=== PATIENT | female | born 1985 | race African-American/Black ===

== ENCOUNTER 2019-10-01 08:18 | Emergency (ER) | payer OTHER ==
[2019-10-01 08:41] LABS: ABSOLUTE EOSINOPHILS # (AUTO) 0.1 10^3/uL (0.0-0.6); ABSOLUTE MONOCYTES (AUTO) 0.5 10^3/uL (0.1-1.4); ABSOLUTE NEUT (AUTO) 3.9 10^3/uL (1.7-8.2); BASOPHILS % (AUTO) 0.6 % (0-2); EOSINOPHILS % (AUTO) 1.5 % (0-6); HEMATOCRIT 38.8 % (36.0-47.0); LYMPHOCYTES % (AUTO) 30.8 % (13-45); MEAN CORPUSCULAR HEMOGLOBIN 29.8 pg (27.0-33.4); MEAN CORPUSCULAR HGB CONC 33.6 g/dL (32.0-36.0); MEAN CORPUSCULAR VOLUME 89 fl (80-97); PLATELET COUNT 233 10^3/uL (150-450); RED BLOOD COUNT 4.37 10^6/uL (3.72-5.28); RED CELL DISTRIBUTION WIDTH 15.3 % (11.5-14.0); SEGMENTED NEUTROPHILS % (AUTO) 59.1 % (42-78); TOTAL CELLS COUNTED % (AUTO) 100 %; WHITE BLOOD COUNT 6.5 10^3/uL (4.0-10.5)
--- NOTE | 2019-10-01 09:09 | ER Document Report ---
ED General - General Chief Complaint: Probable Seizure Stated Complaint: POSSIBLE SEIZURE/HEAD INJURY Time Seen by Provider: 10/01/19 08:44 Primary Care Provider: LAURI BLAIR MD [ACTIVE STAFF] - Follow up as needed - HPI Notes: Ms. Cameron is a 34-year-old previously healthy female 2 para 2 presenting with a chief complaint of possible seizure new onset. Patient said that she felt well when she got up this morning and drove her to children to school. She had just left the school building after dropping off a second child when she apparently had a generalized seizure witnessed by bystanders. Duration is undetermined. EMS was called she was initially unresponsive and noted to have abrasions of the tongue and urinary incontinence. She was transported here and was fully oriented by the time of arrival. Fingerstick glucose at the scene per EMS was 256. Patient is on oral contraceptives and takes no other regular medication. History of penicillin allergy. Denies any known history of head injury or seizures. Denies abuse of drugs alcohol or tobacco. - Related Data Allergies/Adverse Reactions: Penicillins Allergy (Verified 10/01/19 08:25) Past Medical History - General Information source: Patient, Relative - Social History Smoking Status: Never Smoker Frequency of alcohol use: None Drug Abuse: None Occupation: Homemaker Lives with: Family Family History: Reviewed & Not Pertinent - Medical History Medical History: Negative Review of Systems - Review of Systems Notes: Constitutional: Negative for fever. HENT: Negative for sore throat. Eyes: Negative for visual changes. Cardiovascular: Negative for chest pain. Respiratory: Negative for shortness of breath. Gastrointestinal: Negative for abdominal pain, vomiting or diarrhea. Genitourinary: Negative for dysuria. Musculoskeletal: Negative for back pain. Skin: Negative for rash. Neurological: As per HPI . 10 point ROS negative except as marked above and in HPI. Physical Exam - Vital signs Vitals: Resp 21 H 10/01/19 08:30 - Notes Notes: GENERAL: Well-developed well-nourished appearing in no acute distress. SKIN: Good turgor no rashes. HEAD: Normocephalic atraumatic. EYES: PERRLA. EOMI. Conjunctivae and sclerae clear. EARS: CANALS AND TMS CLEAR. NOSE: CLEAR. MOUTH: Tongue is obviously abraded. Moist mucosa. Good dentition. No stridor or edema. No drooling. NECK: Supple. No masses or thyromegaly. No adenopathy. Carotids 2+ without bruits. No JVD. BACK: Symmetrical without tenderness. CHEST: Respirations unlabored. Breath sounds clear and symmetrical. HEART: Regular rhythm. No murmur gallop or rub. ABDOMEN: Soft nontender without masses, organomegaly or rebound. Bowel sounds normally active. No bruits. GENITALIA: Deferred. EXTREMITIES: No edema. No calf tenderness. Cap refill less than 1.5 seconds. Dorsalis pedis and posterior tibial pulses 3+ and symmetrical. NEUROLOGICAL: GCS 15. Alert and oriented x3. Normal gait. Fluent speech. Cranial nerves II through XII intact. Sensorimotor and cerebellar normal. Normal tone. PSYCHIATRIC: Appropriate affect. Course - Re-evaluation Re-evalutation: 10/01/19 09:11 It appears clinically the patient had new onset of seizure activity. We will check CBC chemistry profile, EKG urine drug screen and obtain MRI of the brain. 10/01/19 10:55 Urine drug screen was positive for THC and remainder of labs including multi Unique profile and CBC are unremarkable. Patient is asymptomatic at this time. We await report of the MRI scan which has been completed. 10/01/19 13:12 Bony lesions of the frontal skull noted on the MRI of the head. She has no abnormalities of the brain per se. Findings have been discussed with consultants at [facility] including Dr. Contreras from neurosurgery and Dr. Colmenares from neurology. They agree to see this patient as an ED to ED transfer for consultation in their department. This is also been discussed with Dr. Flores the ED attending who accepts the transfer. Findings have been discussed with the patient in detail. - Vital Signs Vital signs: Temp Pulse Resp BP Pulse Ox 97.9 F 25 H 133/84 H 10/01/19 08:41 10/01/19 08:35 10/01/19 08:36 - Laboratory Result Diagrams: 10/01/19 08:28 10/01/19 08:28 Laboratory results interpreted by me: 10/01/19 10/01/19 10/01/19 08:28 08:28 08:38 RDW 15.3 H Chloride 108 H Carbon Dioxide 19 L Glucose 136 H Urine Protein 30 H Urine Ketones TRACE H Urine Ascorbic Acid 20 H - Diagnostic Test Radiology reviewed: Reports reviewed - EKG Interpretation by Me Additional EKG results interpreted by me: 10/01/19 09:12 Twelve-lead EKG reviewed by me contemporaneously at 0843 hrs. showing normal sinus rhythm with a rate of 87, normal axis and normal intervals. Discharge - Discharge Clinical Impression: New onset seizure, Abnormal findings on diagnostic imaging of skull or facial bones Condition: Stable Disposition: [place] Referrals: LAURI BLAIR MD [ACTIVE STAFF] - Follow up as needed
[2019-10-01 09:13] LABS: APPEARANCE,URINE CLEAR; BILIRUBIN,URINE NEGATIVE (NEGATIVE); COLOR,URINE YELLOW; GLUCOSE, URINE NEGATIVE (NEGATIVE); KETONES,URINE TRACE mg/dL (NEGATIVE); LEUKOCYTE ESTERASE,URINE NEGATIVE (NEGATIVE); NITRITE,URINE NEGATIVE (NEGATIVE); PROTEIN,URINE 30 mg/dL (NEGATIVE); URINE SPECIFIC GRAVITY 1.018; UROBILINOGEN,URINE NEGATIVE mg/dL (<2.0)
[2019-10-01 09:16] LABS: ALKALINE PHOSPHATASE 59 U/L (38-126); ANION GAP 13 (5-19); ASPARTATE AMINO TRANSFERASE 22 U/L (14-36); BILIRUBIN,DIRECT 0.3 mg/dL (0.0-0.4); BILIRUBIN,TOTAL 0.5 mg/dL (0.2-1.3); BLOOD UREA NITROGEN 13 mg/dL (7-20); CALCIUM 9.1 mg/dL (8.4-10.2); CARBON DIOXIDE 19 mmol/L (22-30); CHLORIDE 108 mmol/L (98-107); GLUCOSE 136 mg/dL (75-110); POTASSIUM 4.2 mmol/L (3.6-5.0); TOTAL PROTEIN 7.5 g/dL (6.3-8.2)
[2019-10-01 09:17] LABS: ALCOHOL < 10 mg/dL (NONE DETECTED)
[2019-10-01 09:37] LABS: URINE AMPHETAMINES SCREEN NEGATIVE; URINE BARBITURATES SCREEN NEGATIVE; URINE BENZODIAZEPINES SCREEN NEGATIVE; URINE COCAINE SCREEN NEGATIVE; URINE METHADONE SCREEN NEGATIVE; URINE PHENCYCLIDINE SCREEN NEGATIVE
[2019-10-01 09:55] LABS: URINE MARIJUANA (THC) SCREEN UNCONFIRMED POSITIVE
--- NOTE | 2019-10-01 11:33 | RADIOLOGY REPORT (SQ) ---
EXAM DESCRIPTION: MRI HEAD COMBO COMPLETED DATE/TIME: 10/01/2019 10:30 am REASON FOR STUDY: seizure new onset COMPARISON: None. TECHNIQUE: Multiplanar imaging includes noncontrasted T1, T2, FLAIR, diffusion with ADC map and post gadolinium contrast T1 sequences. Images stored on PACS. CONTRAST TYPE AND DOSE: 15 mL Dotarem. RENAL FUNCTION: Not indicated. ACR Type II contrast agent associated with few, if any, unconfounded cases of NSF LIMITATIONS: None. FINDINGS: There is a partially empty sella. The other midline structures, including the corpus call osum and craniocervical junction are normal in appearance. There is no restricted diffusion on the DWI or blooming artifact on the gradient sequence. There is no T2 or FLAIR signal abnormality. The mesial temporal lobes are normal in appearance. The re is no acute intracranial hemorrhage, mass, mass effect or midline shift. There is no effacement o f the cerebral sulci or basal subarachnoid cisterns. The jerez-white matter differentiation is preser stacey. The caliber of the ventricles is concordant with the degree of sulcation. The intracranial vas cular flow voids are preserved. There is no pathologic intracranial enhancement There is no pathologic intracranial enhancement. There are several expansile osteolytic lesions in the left frontal bone that are hypointense on the T 2 weighted sequence and demonstrate mild heterogeneous enhancement on the postcontrast sequences. The orbits and globes are normal. The paranasal sinuses are clear. IMPRESSION: 1. 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 The differential c onsiderations include among other things metastases, fibrous dysplasia and Langerhans histiocytosis. 2. No acute intracranial abnormality. EVIDENCE OF ACUTE STROKE: NO. COMMENT: This report was called to ZOFIA CALIXTO MD at11:27 on 10/01/2019. TECHNICAL DOCUMENTATION: JOB ID: [id number] [employer]- All Rights Reserved Reading location - IP/workstation name: [email or web address]
--- NOTE | 2019-10-01 11:39 | EKG REPORT ---
SEVERITY:- NORMAL ECG - SINUS RHYTHM : Confirmed by: Roseanne Mccabe MD 01-Oct-2019 11:38:24
--- NOTE | 2019-10-01 12:34 | RADIOLOGY REPORT (SQ) ---
EXAM DESCRIPTION: CHEST 2 VIEWS COMPLETED DATE/TIME: 10/01/2019 12:24 pm REASON FOR STUDY: seizure COMPARISON: None. EXAM PARAMETERS: NUMBER OF VIEWS: two views TECHNIQUE: PA and lateral views of the chest were obtained. RADIATION DOSE: NA LIMITATIONS: none FINDINGS: LUNGS AND PLEURA: No consolidation, pleural effusion or pneumothorax. MEDIASTINUM AND HILAR STRUCTURES: No mediastinal or hilar contour abnormality. HEART AND VASCULAR STRUCTURES: The cardiac silhouette and pulmonary vasculature are within normal [place] its. BONES: No acute findings. HARDWARE: None in the chest. OTHER: No other finding. IMPRESSION: No acute cardiopulmonary process. TECHNICAL DOCUMENTATION: JOB ID: [id number] [employer]- All Rights Reserved Reading location - IP/workstation name: [email or web address]
[2019-10-01] MEDS ORDERED: ACETAMINOPHEN 325 MG TABLET PO ONE (15:01)
[2019-10-01 19:39] VITALS: BP 122/67
--- NOTE | 2019-10-01 19:41 | ER Document Report ---
Doctor's Note Notes: 10/01/19 19:40 Patient was here awaiting transfer to [facility] for further evaluation. I went and evaluated the patient was transport arrived. She has no acute complaints or concerns. She is anxious for transfer, perhaps more answers. She is awake and alert, cooperative with examiner. Vitals reviewed and unremarkable. Patient is medically stable for transport.
== END 2019-10-01 19:45 | disposition short-term general hospital (02) ==
LOC: ER 08:18
DX: R56.9 Unspecified convulsions (principal); R93.0 Abnormal findings on diagnostic imaging of skull and head, not elsewhere classified; Z88.0 Allergy status to penicillin; Z79.3 Long term (current) use of hormonal contraceptives
CPT/HCPCS: 93005; 99285; 36415; 82962; 80307 ×2; 83735; 84703; 85025; 80053; 81001; 70553; 71046; 93010; A9576

== ENCOUNTER 2020-06-04 17:40 | Emergency (ER) | payer OTHER ==
[2020-06-04 17:46] VITALS: BP 126/79
[2020-06-04] MEDS ORDERED: CLINDAMYCIN HCL 150 MG CAPSULE PO ONE (17:52)
[2020-06-04] MEDS ORDERED: LIDOCAINE 2% VISCOUS SOLN 15 ML UDCUP PO ONE (17:53)
[2020-06-04] MEDS ORDERED: HYDROCODONE/ACETAMINOPHEN 5-325 MG TABLET PO ONE (17:53)
--- NOTE | 2020-06-04 18:00 | ER Document Report ---
ED Oral Problem - General Chief Complaint: Toothache Stated Complaint: TOOTH PAIN Time Seen by Provider: 06/04/20 17:50 Mode of Arrival: Ambulatory Information source: Patient Notes: 34-year-old female presented to ED for dental pain to the right lower and upper jaw. She states these teeth have been very decayed broken for a long time. She states the severe pain is been for the last 4 days. States she does have a dental appointment next week but she cannot wait till then. She is alert oriented respirations regular nonlabored speaking in full sentences. - HPI Patient complains to provider of: Toothache Onset: Other - Chronic worse for the last 3 to 4 days Onset: Gradual Quality of pain: Sharp, Throbbing Severity: Moderate Pain Level: 4 Associated symptoms: Toothache Worsened by: Cold Relieved by: Nothing Similar symptoms previously: Yes Recently seen / treated by doctor/dentist: No - Related Data Allergies/Adverse Reactions: Penicillins Allergy (Verified 10/01/19 08:25) Past Medical History - General Information source: Patient - Social History Smoking Status: Former Smoker Frequency of alcohol use: None Drug Abuse: None Family History: Reviewed & Not Pertinent Patient has suicidal ideation: No Patient has homicidal ideation: No - Past Medical History Cardiac Medical History: Reports: None Pulmonary Medical History: Reports: None EENT Medical History: Reports: None Neurological Medical History: Reports: None Endocrine Medical History: Reports: None Renal/ Medical History: Reports: None Malignancy Medical History: Reports: None GI Medical History: Reports: None Musculoskeletal Medical History: Reports None Skin Medical History: Reports None Psychiatric Medical History: Reports: None Traumatic Medical History: Reports: None Infectious Medical History: Reports: None - Immunizations Immunizations up to date: Yes Review of Systems - Review of Systems EENT: Mouth pain, Dental problem Cardiovascular: No symptoms reported Respiratory: No symptoms reported Gastrointestinal: No symptoms reported Genitourinary: No symptoms reported Female Genitourinary: No symptoms reported Musculoskeletal: No symptoms reported Skin: No symptoms reported Hematologic/Lymphatic: No symptoms reported Neurological/Psychological: No symptoms reported -: Yes All other systems reviewed and negative Physical Exam - Vital signs Vitals: Temp Pulse Resp BP Pulse Ox 97.8 F 86 16 126/79 H 100 06/04/20 17:46 06/04/20 17:46 06/04/20 17:46 06/04/20 17:46 06/04/20 17:46 Interpretation: Normal - General General appearance: Appears well, Alert - HEENT Head: Normocephalic, Atraumatic Eyes: Normal Pupils: PERRL Ears: Normal External canal: Normal Tympanic membrane: Normal Sinus: Normal Nasal: Normal Mouth/Lips: Caries Mucous membranes: Normal Teeth diagram: 1 - Very decayed broken off 2 - Very decayed broken off mild erythema around the teeth patient also has mul tiple decayed teeth throughout both upper and lower jaw Pharynx: Normal Neck: Normal - Respiratory Respiratory status: No respiratory distress Chest status: Nontender Breath sounds: Normal Chest palpation: Normal - Cardiovascular Rhythm: Regular Heart sounds: Normal auscultation Murmur: No - Abdominal Inspection: Normal Distension: No distension Bowel sounds: Normal Tenderness: Nontender Organomegaly: No organomegaly - Back Back: Normal, Nontender - Extremities General upper extremity: Normal inspection, Nontender, Normal color, Normal ROM, Normal temperature General lower extremity: Normal inspection, Nontender, Normal color, Normal ROM, Normal temperature, Normal weight bearing. No: Zackary's sign - Neurological Neuro grossly intact: Yes Cognition: Normal Orientation: AAOx4 [place] Coma Scale Eye Opening: Spontaneous Justin Coma Scale Verbal: Oriented [place] Coma Scale Motor: Obeys Commands Justin Coma Scale Total: 15 Speech: Normal Motor strength normal: LUE, RUE, LLE, RLE Sensory: Normal - Psychological Associated symptoms: Normal affect, Normal mood - Skin Skin Temperature: Warm Skin Moisture: Dry Skin Color: Normal Course - Re-evaluation Re-evalutation: 06/04/20 22:34 Presentation is most consistent with likely an infected tooth. Airway is patent. Vitals within normal limits. Patient is able swallow without any difficulty. There is no significant facial swelling. No evidence of Nilo angina, apical abscess, or airway obstruction. Patient will be started on antibiotics. I've instructed to follow-up with dentistry as earliest ability for definitive management. At this time will discharge with return precautions and follow-up recommendations. Verbal discharge instructions given a the bedside and opportunity for questions given. Medication warnings reviewed. Patient is in agreement with this plan and has verbalized understanding of return precautions and the need for primary care follow-up in the next 24-72 hours. - Vital Signs Vital signs: Temp Pulse Resp BP Pulse Ox 97.8 F 86 16 126/79 H 100 06/04/20 17:46 06/04/20 17:46 06/04/20 17:46 06/04/20 17:46 06/04/20 17:46 Discharge - Discharge Clinical Impression: Dental pain on right upper and lower Condition: Stable Disposition: HOME, SELF-CARE Additional Instructions: TOOTHACHE: Your pain is due to dental decay. The tooth must be repaired in order for you to feel better. You will, therefore, be referred to a dentist. We do not have dentists on the staff at [facility]. Severe swelling or drainage around a tooth usually means a dental abscess. This also requires evaluation and treatment by the dentist, but antibiotics may be prescribed while awaiting dental treatment. You should be rechecked immediately if you develop major swelling of the face, increasing pain, a lump in the jaw or gums, headache, difficulty swallowing, or fever. ORAL NARCOTIC MEDICATION: You have been given a [place] for pain control. This medication is a narcotic. It's best taken with food, as nausea can result if taken on an empty stomach. Don't operate machinery or drive within six hours of taking this medication. Do not combine this medicine with alcohol, or with any medication which can cause sedation (such as cold tablets or sleeping pills) unless you get permission from the physician. Narcotics tend to cause constipation. If possible, drink plenty of fluids and eat a diet high in fiber and fruits. Please be aware that prescription narcotics also have the potential for abuse. People become addicted to these medications because of the general sense of wellbeing that they induce. This feeling along with a significant reduction in tension, anxiety, and aggression provides a stimulating seductive quality to these drugs. Once your pain is under control, we encourage you to discard your unused narcotics. CLINDAMYCIN: You have been given a prescription for the antibiotic clindamycin. It is often prescribed for infections in the mouth, such as dental infections or a bscesses, and for skin infections due to MRSA. It's important that you take all the medication, unless instructed otherwise by your physician. Failure to complete the entire course can result in relapse of your condition. Common side effects of antibiotics include nausea, intestinal cramping, or diarrhea. Women may develop vaginal yeast infections, and babies can get yeast (thrush) in the mouth following the use of antibiotics. Contact your physician if you develop significant side effects from this medication. Allergy to this antibiotic can result in hives, wheezing, faintness, or itching. If symptoms of allergy occur, stop the medication and call the doctor. FOLLOW-UP CARE: You have been referred for follow-up care to the dentists listed below. Call the dentists office for an appointment as you were instructed or within the next two days. If you experience worsening or a significant change in your symptoms, notify the physician immediately or return to the Emergency Department at any time for re-evaluation. [facility] [address] [place] [address] [facility] [address] [facility] [address] [facility] ([address]) [facility] [address] [email or web address] [address] [address] Sunday- 8:00am to 5:00 pm Will see patients from other [facility]. Charges based on income and family size and accepts Medicare, Medicaid, and Insurances Will pull molars [facility] [address] Hours of Operation 8:00 am - 4:30 pm weekdays The following dental offices accept Medicaid: [facility] Dr. Ko[address] Dr[address] Dr[address] Javier Dr. Jalloh Rahul Lyons [place], and [facility] Dr. Limon ([place]) Dr. Qiu ([place]) [facility] Drs. Schwab and Joe ([place]) Dr. Paredes ([place]) [facility] Dr. Mccarthy ([place]) Drs. Fiore and ([place]) Medicaid Care Line Prescriptions: Clindamycin HCl 300 mg PO Q6 #28 capsule Forms: Elevated Blood Pressure
== END 2020-06-04 18:05 | disposition home or self-care (01) ==
LOC: ER 17:40
DX: K02.9 Dental caries, unspecified (principal); K08.89 Other specified disorders of teeth and supporting structures; Z87.891 Personal history of nicotine dependence; Z88.0 Allergy status to penicillin
CPT/HCPCS: 99283; J3490